=== PATIENT | male | born 1985 | race Caucasian/White ===

== ENCOUNTER 2019-09-07 00:21 | Observation (INO) ==
[2019-09-07] MEDS ORDERED: ASPIRIN PO ONE (00:33)
[2019-09-07] MEDS ORDERED: NITROGLYCERIN SL ONE (00:33)
[2019-09-07] MEDS ORDERED: G.I. COCKTAIL PO ONE (00:33)
[2019-09-07 00:52] LABS: BASO# 0.03 X1000 (0.0-0.2); BASO% 0.2 % (0.0-0.8); EOS# 0.07 X1000 (0.0-0.7); EOS% 0.5 % (0.0-10.0); HEMATOCRIT 45.3 % (42.0-52.0); HEMOGLOBIN 15.2 g/dL (14.0-18.0); IMM GRAN# 0.07 X1000 (0.0-0.04); IMM GRAN% 0.5 % (0.0-0.5); LYMPH# 2.75 X1000 (1.2-3.4); LYMPH% 19.8 % (20.5-51.1); MCH 30.9 PG (27-31); MCHC 33.6 g/dL (33-37); MCV 92.1 FL (81-99); MONO# 1.32 X1000 (0.11-0.59); MONO% 9.5 % (1.7-9.3); MPV 9.9 FL (7.4-10.4); NEUT# 9.63 X1000 (1.4-6.5); NEUT% 69.5 % (42.2-75.2); PLT 326 X1000 (130-400); RBC 4.92 XMIL (4.7-6.1); RDW 13.3 % (11.5-14.5); WBC 13.87 X1000 (4.8-10.8)
[2019-09-07 01:03] LABS: AGAP 14; BUN 13 mg/dL (8-22); CALCIUM 10.5 mg/dL (8.8-10.2); CHLORIDE 96 mmol/L (98-107); COSMO 269; CREATININE 0.9 mg/dL (0.7-1.2); ESTIMATED GFR > 60; GLUCOSE 108 mg/dL (70-104); POTASSIUM 4.4 mmol/L (3.5-5.1); SODIUM 134 mmol/L (136-145); TCO2 24 mmol/L (25-35)
[2019-09-07] MEDS ORDERED: MORPHINE IV ONE (01:51)
[2019-09-07] MEDS ORDERED: ZOFRAN IV ONE (01:51)
[2019-09-07 02:02] LABS: INFLUENZA A NEGATIVE (NEGATIVE); INFLUENZA B NEGATIVE (NEGATIVE)
--- NOTE | 2019-09-07 02:56 | EKG Report ---
Test Performed on : 09/07/2019 01:49:42 AM Test Reason : cp Blood Pressure : / mmHG Vent. Rate : 093 BPM Atrial Rate : 093 BPM P-R Int : 176 ms QRS Dur : 096 ms QT Int : 340 ms P-R-T Axes : 014 011 041 degrees QTc Int : 422 ms Normal sinus rhythm. Acute pericarditis Abnormal ECG When compared with ECG of 07-SEP-2019 00:31, (Unconfirmed) No significant change was found Unconfirmed Result
--- NOTE | 2019-09-07 02:58 | EKG Report ---
Test Performed on : 09/07/2019 00:31:33 AM Test Reason : cp Blood Pressure : / mmHG Vent. Rate : 109 BPM Atrial Rate : 109 BPM P-R Int : 186 ms QRS Dur : 094 ms QT Int : 332 ms P-R-T Axes : 025 015 037 degrees QTc Int : 447 ms Sinus tachycardia. Early repolarization Otherwise normal ECG When compared with ECG of 07-SEP-2019 00:28, (Unconfirmed) No significant change was found Unconfirmed Result
[2019-09-07 03:12] LABS: URINE SOURCE CLEAN CATCH
[2019-09-07 03:26] LABS: BILIRUBIN URINE NEGATIVE (NEGATIVE); BLOOD URINE TRACE (NEGATIVE); COLOR YELLOW; GLUCOSE URINE NEGATIVE (NEGATIVE); KETONE URINE NEGATIVE (NEGATIVE); LEUKOCYTES URINE NEGATIVE (NEGATIVE); NITRITE URINE NEGATIVE (NEGATIVE); PROTEIN URINE NEGATIVE (NEGATIVE); SP GRAVITY URINE 1.014; TURBIDITY URINE CLEAR (CLEAR); UROBILINOGEN URINE NORMAL (NORMAL)
[2019-09-07 03:29] LABS: UR EPITHELIAL CELLS <10 /HPF (<10); URINE BACTERIA NEGATIVE /HPF; URINE RBC <10 /HPF (<10); URINE WBC <10 /HPF (<10)
[2019-09-07 03:30] LABS: INR 0.88; PROTIME 12.4 Seconds (11.0-16.0)
--- NOTE | 2019-09-07 03:30 | PROVIDER DOCUMENTATION ---
This chart was entered by Donna Cuevas Scribe, acting as scribe for Viraj Swartz MD. HPI-Chest Pain - General Chief Complaint: Chest Pain Stated Complaint: CHEST PAIN Time Seen by Provider: 09/07/19 00:22 Source: patient Allergies/Adverse Reactions: Patient Allergies Allergy/AdvReac Type Severity Reaction Status Date / Time amoxicillin [From Augmentin] Allergy Unknown Verified 09/07/19 00:30 clavulanic acid Allergy Unknown Verified 09/07/19 00:30 [From Augmentin] Home Medications: Home Medication List Medication Instructions Recorded Confirmed Last Taken Type NK [No Home Medications] 09/07/19 09/07/19 Unknown History - History of Present Illness-CP Nature of Presenting Problem: pt is a 34 yr old male presenting with complaint of substernal chest pain radiating to neck and upper back and shortness of breath. pt denies any nausea/vomiting , no cardiac hx. pt reports it woke him from sleep. Location: reports: substernal Chest Pain Radiation: reports: neck, back Quality of Pain: reports: pressure, sharp Severity in ED: moderate Onset/Duration: just prior to arrival Timing: still present Context/Activities at Onset: reports: sleep Modifying Factors: improves with: breathing (worsens pain), lying down (worsens pain) Associated Symptoms: reports: shortness of breath. denies: abdominal pain, diaphoresis, fever/chills, nausea, vomiting Nitro Today/Relief: no nitro taken today Aspirin Treatment Today: no aspirin today Prior Chest Pain/Cardiac Workup: reports: no prior chest pain, no prior cardiac workup Similar Symptoms Previously?: No Recently Seen Here or By Another Healthcare Provider: No Review of Systems - Adult - REVIEW OF SYSTEMS - ADULT Constitutional: denies: chills, fever, fatique Eyes: denies: blurred vision, double vision, redness Ears, Nose, Mouth & Throat: denies: ear pain, sinus problem, throat pain Cardiovascular: reports: chest pain. denies: palpitations, syncope Respiratory: reports: shortness of breath. denies: cough, wheezing Gastrointestinal: denies: abdominal pain, nausea, vomiting Genitourinary: reports: no symptoms reported Musculoskeletal: reports: neck pain. denies: back pain, joint pain Integumentary: reports: no symptoms reported Neurological: denies: dizziness/vertigo, headache/migraines, syncope Psychiatric: reports: no symptoms reported Endocrine: reports: no symptoms reported Hematologic/Lymphatic: reports: no symptoms reported Allergic/Immunologic: reports: no symptoms reported All Other Systems: Reviewed and Negative Past History - Adult - PAST MEDICAL HISTORY-ADULT Review of Records: reports: Nursing Assessment Review, Medications Reviewed, S ocial history reviewed & non-contributory. Major Childhood Illnesses: reports: denies history Cardiovascular: reports: denies history Respiratory: reports: denies history Gastrointestinal: reports: denies history Obstetrical/Gynecological: reports: denies history Genitourinary: reports: denies history Musculoskeletal: reports: denies history Neurological: reports: denies history Endocrine/Immune: reports: denies history Other Conditions: reports: denies history - IMMUNIZATION STATUS Childhood Immunizations: See Nurse Assessment Flu Vaccine: See Nurse Assessment - FAMILY HISTORY Family History: reviewed, not pertinent - SOCIAL HISTORY Smoking: quit greater than 1 year Substance Use: denies Living Situation: family Physical Exam-General - PHYSICAL EXAM-ADULT Initial Vital Signs Reviewed: Yes - CONSTITUTIONAL General Appearance: alert, no apparent distress, obese, anxious - EYES Eyes: PERRL/EOMI - HEAD, EARS, NOSE, MOUTH & THROAT HENMT: normocephalic/atraumatic, moist mucous membranes, normal ENT inspection - NECK Neck: non-tender, full range of motion, supple, normal inspection - RESPIRATORY Respiratory: chest non-tender, lungs clear, normal breath sounds, no respiratory distress, no accessory muscle use - CARDIOVASCULAR Cardiovascular: normal peripheral pulses, tachycardia, other (BP 174/112) - GASTROINTESTINAL (ABDOMEN) Abdominal Exam: normal bowel sounds, non tender, soft - LYMPHATIC Lymphatic: no adenopathy - MUSCULOSKELETAL Back Exam: normal inspection, no CVA tenderness, no vertebral tenderness Extremity: normal range of motion, non-tender, normal gait, normal inspection - SKIN Integumentary: normal color, normal turgor, warm/dry - NEUROLOGIC Neurologic: grossly normal, no motor/sensory deficits - PSYCHIATRIC Psych/Mental Status: oriented x 3, anxious - HEART Score HEART Score: History: Slightly Suspicious HEART Score: ECG: Non-Specific Repolarization Disturbance/LBBB/PM HEART Score: Age: < or = 45 Years HEART Score: Risk Factors for Atherosclerotic Disease: No Risk Factors Known HEART Score: Troponin: < or = Normal Limit Total HEART Score:: 1 Progress - PLAN OF CARE/RESULTS Progress/Plan/Lab Results: Vital Signs - 8 hr 09/07/19 00:25 09/07/19 01:04 09/07/19 02:56 Temperature 99.3 F Pulse Rate 109 H 110 H 102 H Respiratory Rate 20 13 26 H Blood Pressure 174/112 141/97 147/93 O2 Sat by Pulse Oximetry 94 L 100 99 Laboratory Results - last 24 hr 09/07/19 09/07/19 09/07/19 00:34 00:34 00:34 WBC 13.87 H RBC 4.92 Hgb 15.2 Hct 45.3 MCV 92.1 MCH 30.9 MCHC 33.6 RDW Std Deviation 13.3 Plt Count 326 MPV 9.9 Immature Gran % (Auto) 0.5 Neut % (Auto) 69.5 Lymph % (Auto) 19.8 L [place] % (Auto) 9.5 H Eos % (Auto) 0.5 Baso % (Auto) 0.2 Immature Gran # (Auto) 0.07 H Neut # (Auto) 9.63 H Lymph # (Auto) 2.75 [place] # (Auto) 1.32 H Eos # (Auto) 0.07 Baso # (Auto) 0.03 ESR D-Dimer, Quantitative 0.51 Sodium 134 L Potassium 4.4 Chloride 96 L Carbon Dioxide 24 L Anion Gap 14 BUN 13 Creatinine 0.9 Estimated GFR/1.73 m2 > 60 BUN/Creatinine Ratio 14 Glucose 108 H Calculated Osmolality 269 Calcium 10.5 H Creatine Kinase Troponin T High Sens Urine Source Urine Color Urine Turbidity Urine pH Ur Specific [place] Urine Protein Ur Glucose (Stick) Ur Ketones (Stick) Urine Blood Urine Nitrite Urine Bilirubin Urobilinogen Dipstick Urine Leukocytes Influenza A (Rapid) Influenza B (Rapid) 09/07/19 09/07/19 09/07/19 00:34 00:34 01:19 WBC RBC Hgb Hct MCV MCH MCHC RDW Std Deviation Plt Count MPV Immature Gran % (Auto) Neut % (Auto) Lymph % (Auto) [place] % (Auto) Eos % (Auto) Baso % (Auto) Immature Gran # (Auto) Neut # (Auto) Lymph # (Auto) [place] # (Auto) Eos # (Auto) Baso # (Auto) ESR 4 D-Dimer, Quantitative Sodium Potassium Chloride Carbon Dioxide Anion Gap BUN Creatinine Estimated GFR/1.73 m2 BUN/Creatinine Ratio Glucose Calculated Osmolality Calcium Creatine Kinase 88 Troponin T High Sens 8 Urine Source Urine Color Urine Turbidity Urine pH Ur Specific [place] Urine Protein Ur Glucose (Stick) Ur Ketones (Stick) Urine Blood Urine Nitrite Urine Bilirubin Urobilinogen Dipstick Urine Leukocytes Influenza A (Rapid) Influenza B (Rapid) 09/07/19 09/07/19 01:20 01:34 WBC RBC Hgb Hct MCV MCH MCHC RDW Std Deviation Plt Count MPV Immature Gran % (Auto) Neut % (Auto) Lymph % (Auto) [place] % (Auto) Eos % (Auto) Baso % (Auto) Immature Gran # (Auto) Neut # (Auto) Lymph # (Auto) [place] # (Auto) Eos # (Auto) Baso # (Auto) ESR D-Dimer, Quantitative Sodium Potassium Chloride Carbon Dioxide Anion Gap BUN Creatinine Estimated GFR/1.73 m2 BUN/Creatinine Ratio Glucose Calculated Osmolality Calcium Creatine Kinase Troponin T High Sens Urine Source CLEAN CATCH Urine Color YELLOW Urine Turbidity CLEAR Urine pH 6.0 Ur Specific [place] 1.014 Urine Protein NEGATIVE Ur Glucose (Stick) NEGATIVE Ur Ketones (Stick) NEGATIVE Urine Blood TRACE A Urine Nitrite NEGATIVE Urine Bilirubin NEGATIVE Urobilinogen Dipstick NORMAL Urine Leukocytes NEGATIVE Influenza A (Rapid) NEGATIVE Influenza B (Rapid) NEGATIVE Orders Category Date Time Status Cardiac Monitoring DIRECTED Care 09/07/19 00:34 Active Cardiac Monitoring DIRECTED Care 09/07/19 03:01 Active IV Insertion ORDERED Care 09/07/19 03:01 Completed Notify MD of + Sepsis Screen NOW Care 09/07/19 03:01 Active Notify Physician As Ordered Care 09/07/19 03:01 Active Saline Loc NOW Care 09/07/19 00:34 Active CHEST-2 VIEWS [RAD] Stat Exams 09/07/19 01:29 Taken CHEST-PORTABLE [RAD] Stat Exams 09/07/19 00:35 Taken BASIC METABOLIC PANEL [CHEM] Stat Lab 09/07/19 00:34 Completed BLOOD CULTURE [BLDCUL] Stat Lab 09/07/19 03:03 Ordered C REACTIVE PROT QUANT [CHEM] Stat Lab 09/07/19 01:19 Received CBC WITH ELECTRONIC DIFF [HEME] Stat Lab 09/07/19 00:34 Completed CK PROFILE [SP CHEM] Stat Lab 09/07/19 00:34 Completed D-DIMER [COAG] Stat Lab 09/07/19 00:[address] Stat Lab 09/07/19 01:20 Completed LACTATE, PLASMA [CHEM] Lab 09/07/19 03:19 Received LACTATE, PLASMA [CHEM] Lab 09/07/19 06:15 Uncollected LACTATE, PLASMA [CHEM] Lab 09/07/19 09:15 Uncollected PROTIME WITH INR [COAG] Stat Lab 09/07/19 00:34 Received PTT [COAG] Stat Lab 09/07/19 00:34 Received SED RATE [HEME] Stat Lab 09/07/19 00:34 Completed TROPONIN T HIGH SENSITIVITY Stat Lab 09/07/19 01:19 Completed URINALYSIS W/POSS RFLX CULT [URINALYSIS] Stat Lab 09/07/19 01:34 Results Aspirin Med 09/07/19 00:33 Discontinued 243 mg PO NOW ONE Lido/Hill Alk/Al&mg Hydrox [G.i. Cocktail] Med 09/07/19 00:33 Discontinued 30 ml PO NOW ONE Morphine Med 09/07/19 01:51 Discontinued 4 mg IV NOW ONE Nitroglycerin Sl [Nitroglycerin] Med 09/07/19 00:33 Discontinued 0.4 mg SL NOW ONE Ondansetron [Zofran] Med 09/07/19 01:51 Discontinued 4 mg IV NOW ONE Oxygen Device Stat Oth 09/07/19 03:01 Active EKG [EKG] Stat Ther 09/07/19 00:34 Draft EKG [EKG] Stat Ther 09/07/19 01:46 Draft Result Diagrams: 09/07/19 00:34 09/07/19 00:34 - REASSESSMENT Reassessment #1 Time Reassessed: 00:45 Status: unchanged Reassessment Comment: no improvement with 1st SL nitro Reassessment #2 Time Reassessed: 02:01 Status: unchanged (APIN BETTER THEN WORSE AGAIN, WORSE WITH SUPINE OR WITH INSPIRATION. NO RUB ON REPEAT AUSCULTATION. TROP 8, WBC 13.8) Reassessment #3 Time Reassessed: 03:02 Status: improving (CHERI PAIN YET UNCONTROLLED, SED RATE PENDING, SUSPECT PERICARDITIS, NO RUB) - EKG 1 Time of EKG reading by physician:: 00:31 EKG Read and Signed by:: Viraj Swartz EKG Interpretation (*Must complete 3 of following elements*): Abnormal (early repolarization) Rate: 109 Rhythm: sinus tachycardia [place]: normal QRS: normal NC Interval: normal ST Wave: normal - CONSULTS/PCP/HOSPITALIST Notification #1 *Consult/PCP/Hospitalist*: DR WALLIS Time Discussed: 03:00 Consult Disposition: Admit Departure - Departure Date of Disposition Decision: 09/07/19 Time of Disposition Decision: 03:00 DIAGNOSIS: Abnormal EKG Chest pain Qualifiers: Chest pain type: chest pain on breathing Qualified Code(s): R07.1 - Chest pain on breathing; R07.81 - Pleurodynia Disposition: ADMITTED INPATIENT 09 Certified Medical Emergency: Emergent Condition: Stable Referrals and Follow-Ups: None,PCP [Primary Care Provider] - - Critical Care Note This patient required my direct & personal management of CC.: No Attestation - Physician/ GENE Attestation The physician spent face to face time with patient:: Yes Advanced Practice Provider documentation review:: Supervising physician onsite and consulted in the evaluation and care of this patient. The physician did have a face to face encounter with the patient. This chart was documented by the indicated scribe, (Donna Cuevas Scribe) and accurately reflects the services I performed and decisions made by me, teo,Viraj Rice MD, as attested by the provider's signature.
[2019-09-07 03:31] LABS: PTT 35.9 Seconds (22.3-41.8)
[2019-09-07] MEDS ORDERED: NS 1,000 ML IV ONE (05:07)
[2019-09-07] MEDS ORDERED: ZOFRAN IV PRN (05:07)
[2019-09-07] MEDS ORDERED: MORPHINE IV PRN (05:07)
--- NOTE | 2019-09-07 05:39 | Diag Imaging Result Doc PS360 ---
EXAM: CHEST-PORTABLE HISTORY: chest pain TECHNIQUE: Single view COMPARISON: None. FINDINGS: Poor inspiratory effort. The heart is not enlarged. The vessels are not distended. There are no infiltrates. No effusion identified. IMPRESSION: Negative exam. Electronically signed by Mingo Durand 09/07/2019 5:37 AM
--- NOTE | 2019-09-07 05:41 | Diag Imaging Result Doc PS360 ---
EXAM: CHEST-2 VIEWS HISTORY: short of breath,CP TECHNIQUE: Two views COMPARISON: 12:49 AM FINDINGS: The lungs are well expanded. The heart is not enlarged. The vessels are not distended. There are no infiltrates. No pleural effusions. IMPRESSION: No acute abnormality. Electronically signed by Mingo Durand 09/07/2019 5:39 AM
[2019-09-07 08:02] LABS: UR AMPHETAMINES QUAL NONE DETECTED (NONE DETECT); UR BARBITUATES QUAL NONE DETECTED (NONE DETECT); UR BENZODIAZEPIN QUAL NONE DETECTED (NONE DETECT); UR CANNABINOIDS QUAL NONE DETECTED (NONE DETECT); UR COCAINE QUAL NONE DETECTED (NONE DETECT); UR METHADONE QUAL NONE DETECTED (NONE DETECT); UR METHAMPHETAMINE QUAL NONE DETECTED (NONE DETECT); UR OPIATES QUAL NONE DETECTED (NONE DETECT); UR OXYCODONE QUAL NONE DETECTED (NONE DETECT); UR PCP QUAL NONE DETECTED (NONE DETECT); UR PROPOXYPHENE QUAL NONE DETECTED (NONE DETECT); UR TCA QUAL NONE DETECTED (NONE DETECT)
--- NOTE | 2019-09-07 09:32 | Diag Imaging Result Doc PS360 ---
EXAM: CT ANGIOGRM PULMONARY ARTERIES HISTORY: chest pain TECHNIQUE: CT chest with intravenous contrast. Pulmonary arterial protocol with MIP images. COMPARISON: None. FINDINGS: Poor inspiratory effort. No central pulmonary emboli. No pleural effusions. No aortic aneurysm or dissection. The heart is mildly enlarged. There is a right pericardial cyst measuring 2.7 x 5.3 cm. Right lateral calcified granuloma. There is pulmonary edema. Mild increased interstitial markings in the lower lungs. No consolidation. No enlarged lymph nodes. Limited images through the upper abdomen reveal hepatosplenomegaly with fatty infiltration of the liver. IMPRESSION: 1.No pulmonary emboli 2.Cardiomegaly with pulmonary edema 3.Pericardial cyst 4.Basilar atelectasis versus tiny infiltrates 5.Hepatosplenomegaly with fatty infiltration of the liver This exam was performed using automated exposure control, adjustment of mA or kV according to patient size, and/or use of iterative reconstruction technique. Electronically signed by Mingo Durand 09/07/2019 9:30 AM
[2019-09-07] MEDS ORDERED: LEVAQUIN 750 MG/D5W 750 MG/150 ML IVPB IV SCH (14:00)
[2019-09-07] MEDS: TORADOL PO SCH ×2 (14:49→20:09)
--- NOTE | 2019-09-07 15:46 | ECHO REPORT ---
ORDER DATE: 09/07/2019 INDICATION: SVT. FINDINGS: 1. Right atrium appears normal in size at 3.6 cm. 2. Trace tricuspid regurgitation. Insufficient data to accurately estimate RV systolic pressure. 3. Normal RV size and systolic function. 4. No significant pulmonic insufficiency. 5. Mild left atrial enlargement with a dimension of 4.1 cm. 6. No mitral prolapse. Mild mitral regurgitation. No evidence of mitral stenosis. 7. Normal LV size, end-diastolic dimension of 5.1 cm. Normal wall thicknesses with a posterior and interventricular septal wall thickness 1 cm each. Normal LV systolic function. Estimated EF of 55% to 60% percent with normal wall motion. 8. Aortic valve opens well. No evidence of stenosis or insufficiency. 9. Aorta appears slightly dilated with a dimension of 3.9 cm in the ascending root. 10. No evidence of pericardial effusion. The CT scan of the chest suggested a possible pericardial cyst just anterior to the right atrium. I do not see clear evidence for this on the echocardiogram, but this area is not imaged well. cc: MD Parminder Saez MD
--- NOTE | 2019-09-07 18:11 | HISTORY AND PHYSICAL ---
CHIEF COMPLAINT: Substernal chest pain, shortness of breath. HISTORY OF PRESENT ILLNESS: This is a 34-year-old gentleman, who denies any prior history, who presents to the emergency room complaining of substernal chest pain that started about 5 hours prior. He also had some shortness of breath that accompanied. INCOMPLETE REPORT--DICTATION ENDS HERE. Dictated by IVAN Felder for Parminder Galarza MD cc: IVAN Felder MD
--- NOTE | 2019-09-07 18:25 | HISTORY AND PHYSICAL ---
CHIEF COMPLAINT: Chest pain. HISTORY OF PRESENT ILLNESS: This is a 34-year-old gentleman with no prior health history, who presents complaining of substernal chest pain that radiates to his neck and upper back, along with shortness of breath. It started about 5 or 6 hours prior to presentation to the emergency room. He describes this as a pressure and sharp type pain. It improves by sitting up and leaning forward. It does get worse when lying down. He denied any palpitations, any fevers or chills, or any nausea or vomiting. PAST MEDICAL HISTORY: Denies. PAST SURGICAL HISTORY: Denies. SOCIAL HISTORY: He denies any alcohol, tobacco or illicit drug use. ALLERGIES: Augmentin. HOME MEDICATIONS: None. REVIEW OF SYSTEMS: Discussed with the patient, with pertinent positives stated in the HPI. He denied any syncope, dizziness, any palpitations, any productive cough, fever, chills, any nausea, vomiting, diarrhea, constipation, black or bloody vomitus or stools, or any hematuria, dysuria, frequency or urgency. PHYSICAL EXAMINATION: GENERAL: This is a 34-year-old gentleman who is sitting up in the room in no distress. VITAL SIGNS: Blood pressure is 122/79 with a heart rate of 90, respirations are 20, temperature is 98.4 degrees oral with O2 saturation 98% to 99% on 2 L nasal cannula. EYES: Pupils are equal, round and react to light. EOMs are intact. Sclerae are anicteric. HEENT: Head is normocephalic, atraumatic. Mucous membranes are moist. NECK: Supple, with trachea midline. CARDIOVASCULAR: Regular rate and rhythm. S1 and S2 are appreciated. No murmur. He has no lower extremity edema. Calves are nontender bilateral with peripheral pulses palpable x4 extremities. PULMONARY: Breath sounds are clear with no increased work of breathing noted. Chest rises and falls symmetric respiration. Chest wall is nontender to palpation. GASTROINTESTINAL: Abdomen is soft, nontender, nondistended. Bowel sounds in all 4 quadrants. GENITOURINARY: No CVA or suprapubic tenderness. NEUROLOGIC: He is alert and oriented x3. SKIN: Warm and dry. LABORATORY DATA: WBC is 13.8 with hemoglobin 15.2, hematocrit 45.3, platelets of 326,000. INR is 0.88, with a D-dimer of 0.51. Sodium 134, potassium 4.4, BUN 13, creatinine 0.9 with a glucose of 108. Troponin is 8. CRP is 15.2. Urinalysis is essentially negative. Urine drug screen reveals none detected. Flu A and B are negative. Blood cultures x2 are pending. DIAGNOSTIC DATA: 1. Chest x-ray reveals no acute abnormality. Lungs are well expanded. Heart is not enlarged. Vessels are not distended. There are no infiltrates, no pleural effusions. 2. CTA pulmonary arteries: No pulmonary emboli; cardiomegaly with pulmonary edema; pericardial cyst; basilar atelectasis versus tiny infiltrate, with hepatosplenomegaly. 3. Echocardiogram is pending. ASSESSMENT: 1. Pericarditis. 2. Chest pain. 3. Shortness of breath. 4. Pulmonary edema. 5. Pericardial cyst. 6. Bilateral atelectasis versus infiltrates. 7. Leukocytosis. PLAN: The patient has been admitted to the medical/surgical floor at [facility] and we will place him on telemetry. We will give supplemental oxygen as needed. Start Toradol scheduled. Start incentive spirometer. Blood cultures have been obtained. We will start Levaquin IV. We will continue with gentle hydration. Plan was discussed with Dr. Galarza. Further treatments pending hospital course. Dictated by IVAN Felder for Parminder Galarza MD cc: IVAN Felder MD
--- NOTE | 2019-09-08 01:01 | HISTORY AND PHYSICAL ---
ADDENDUM: Patient seen and examined by myself. Full note dictated and discussed with nurse practitioner. Patient presented to the hospital with chest pain and shortness of breath. States he stopped smoking approximately a month and a half ago. Does not drink alcohol. Chest x-ray demonstrates pneumonia. We are going to place him on antibiotics. Final results of his echo is pending and we will follow. cc: Parminder Galarza MD
[2019-09-08] MEDS: TORADOL PO SCH ×2 (01:44→08:39)
[2019-09-08 08:53] VITALS: BP 125/80
--- NOTE | 2019-09-09 07:55 | DISCHARGE SUMMARY ---
ADMISSION DATE: 09/07/2019 DISCHARGE DATE: 09/08/2019 DISCHARGE DIAGNOSES: 1. Chest pain and suspected pericarditis, although echocardiogram was normal. 2. Shortness of breath. 3. Pulmonary edema. 4. Pneumonia. 5. Leukocytosis. CONSULTATIONS: None. PROCEDURES: Echocardiogram. BRIEF HOSPITAL COURSE: The patient is a pleasant, 34-year-old male, who presented to the hospital with cough, congestion, increased work of breathing, shortness of breath. He was subsequently diagnosed with pneumonia. He was given Toradol yesterday, as well as 1 dose of Solu-Medrol. Currently, he states he is feeling tremendously better. His shortness of breath is all but resolved. DISPOSITION: The patient will be discharged home. He will follow up outpatient with treatment facility of choice. He will continue antibiotics. Greater than 30 minutes were spent in total care. He will continue antibiotics for 7 days. No other changes made on his chronic home medications. cc: Parminder Galarza MD
== END 2019-09-08 13:32 | disposition home or self-care (01) ==
LOC: P.MEDSURG 00:21 → P.ED 00:21
PROVIDERS: ATTEND Family Medicine